=== PATIENT | female | born 1965 | race Caucasian/White ===

== ENCOUNTER 2025-05-12 21:06 | Emergency (ER) | payer BC ==
[2025-05-12 21:52] LABS: BASOPHILS ABSOLUTE AUTO 0.1 x10-3/uL (0.0-0.1); BASOPHILS PERCENT AUTO 1.2 % (0.2-1.5); EOSINOPHILS ABSOLUTE AUTO 0.2 x10-3/uL (0.0-0.8); EOSINOPHILS PERCENT AUTO 2.9 % (0.6-8.1); LYMPHOCYTES ABSOLUTE AUTO 1.7 x10-3/uL (1.0-4.4); LYMPHOCYTES PERCENT AUTO 28.5 % (18.4-52.1); MEAN PLATELET VOLUME 7.5 fL (7.1-12.4); MONOCYTES ABSOLUTE AUTO 0.4 x10-3/uL (0.3-1.0); MONOCYTES PERCENT AUTO 6.8 % (4.4-15.7); NEUTROPHILS ABSOLUTE AUTO 3.7 x10-3/uL (1.5-6.3); NEUTROPHILS PERCENT AUTO 60.6 % (30.8-76.2); PLATELET COUNT,PLT 223 x10(3)uL (151-488); RED BLOOD CELL COUNT 4.41 x10(6)uL (3.60-5.20); RED CELL DISTRIBUTION WIDTH 13.4 % (12.3-16.5); WHITE BLOOD CELL COUNT,WBC 6.0 x10-3/uL (3.0-10.3)
[2025-05-12 21:55] LABS: BLOOD UREA NITROGEN,BUN 20 mg/dL (7-18); CARBON DIOXIDE,CO2 29 mmol/L (21-32); CHLORIDE,CL 105 mmol/L (100-110); CREATININE 1.0 mg/dL (0.55-1.02); EST CRCL DRUG DOSING (CG) 56.45 mL/min; ESTIMATED GFR 66 mL/min (>60); GLUCOSE RANDOM 108 mg/dL (80-116); POTASSIUM,K 3.5 mmol/L (3.5-5.3); SODIUM,NA 142 mmol/L (135-145)
[2025-05-12 22:01] LABS: A/G RATIO 1.2; ALANINE AMINOTRANSFERASE,ALT 24 U/L (12-36); ASPARTATE AMNIOTRANSFERASE,AST 18 IU/L (5-25); BILIRUBIN TOTAL 0.3 mg/dL (0.1-1.3); PROTEIN TOTAL,TP 6.7 g/dL (6.0-8.0)
== END 2025-05-12 22:50 | disposition home or self-care (01) ==
LOC: FB.ED 21:06
DX: R07.9 Chest pain, unspecified (principal); R10.13 Epigastric pain; Z88.0 Allergy status to penicillin; Z88.2 Allergy status to sulfonamides
CPT/HCPCS: 36415; 80053; 83735; 84484; 85025; 85379; 86140; 93005; 99285